=== PATIENT | female | born 1995 | race Caucasian/White ===

== ENCOUNTER 2016-11-09 04:39 | Emergency (ER) | payer BC, MEDICAID ==
[~2016-11-09] VITALS: Ht 160 cm; Wt 90.9 kg
[~2016-11-09 04:39] MED LIST: PREN1TAB31 PO
[2016-11-09 04:47] VITALS: Ht 160 cm; Wt 90.9 kg
[2016-11-09] MEDS ORDERED: KETOROLAC 60 MG INJ IM STA (07:17)
[2016-11-09 07:32] LABS: URINE BLOOD (Dip) POC 1+ (NEGATIVE)
[2016-11-09 08:02] LABS: ADD SCAN DIFF NO
[2016-11-09 08:14] LABS: ALBUMIN 4.2 g/dl (3.3-4.9)
[2016-11-09 08:15] LABS: POTASSIUM 4.2 mmol/L (3.5-5.1)
[2016-11-09 08:17] LABS: ALBUMIN/GLOBULIN RATIO 1.23; CREATININE 0.81 mg/dl (0.44-1.00); TOTAL PROTEIN 7.6 g/dl (6.1-8.1)
[2016-11-09 08:18] LABS: CALCIUM 9.3 mg/dl (8.4-10.2)
[2016-11-09 08:19] LABS: BASOPHILS % 0.3 % (0.0-2.0); EOSINOPHILS # 0.3 10^3/ul (0.0-0.5); EOSINOPHILS % 1.9 % (0.0-7.0); HEMATOCRIT 39.9 % (37.0-47.0); HEMOGLOBIN 12.9 g/dl (12.0-16.0); LYMPHOCYTES # 2.2 10^3/ul (0.8-2.9); LYMPHOCYTES % 15.6 % (15.0-51.0); MEAN CORPUSCULAR HEMOGLOBIN 29.1 pg (29.0-33.0); MEAN CORPUSCULAR HGB CONC 32.3 g/dl (32.0-37.0); MEAN CORPUSCULAR VOLUME 89.9 fl (82.0-101.0); MEAN PLATELET VOLUME 9.4 fl (7.4-10.4); MONOCYTE # 0.8 10^3/ul (0.3-0.9); MONOCYTES % 5.6 % (0.0-11.0); NEUTROPHIL # 10.6 10^3/ul (1.6-7.5); NEUTROPHILS % 76.2 % (39.0-77.0); PLATELET COUNT 306 10^3/UL (140-415); RED BLOOD COUNT 4.44 10^6/ul (4.20-5.40); RED CELL DISTRIBUTION WIDTH 12.9 % (11.5-14.5); WHITE BLOOD COUNT 13.9 10^3/ul (4.8-10.8)
[2016-11-09] MEDS ORDERED: KETOROLAC 30 MG INJ IV STA (08:26)
[2016-11-09 08:27] LABS: ADD UMIC YES; URINE BILIRUBIN (Dip) NEGATIVE (NEGATIVE); URINE BLOOD (Dip) 1+ (NEGATIVE); URINE COLOR LT. YELLOW (YELLOW); URINE GLUCOSE (Dip) NEGATIVE (NEGATIVE); URINE KETONES (Dip) TRACE (NEGATIVE); URINE LEUKOCYTE ESTERASE (Dip) NEGATIVE (NEGATIVE); URINE NITRITE (Dip) NEGATIVE (NEGATIVE); URINE TOTAL PROTEIN (Dip) TRACE (NEGATIVE); URINE UROBILINOGEN (Dip) 0.2 E.U./dL (0.1-1.0)
--- NOTE | 2016-11-09 08:30 | RADRPT ---
PROCEDURE: US Abdomen Right Upper Quadrant. CLINICAL INDICATION: Abdominal pain TECHNIQUE: Multiple real-time longitudinal and transverse images were acquired of the patient's merged with [facility] upper quadrant abdomen utilizing a curved array transducer. COMPARISON: 08/04/2014 FINDINGS: Liver: The liver is enlarged with the sagittal diameter right lobe measuring 20.5 cm. There is a di ffuse increase in echotexture seen to the liver with no focal lesion identified. There is antegrade flow of the main portal vein. Gallbladder: Cholelithiasis with the largest measuring 2.1 cm. The gallbladder wall is not thickened . Bile ducts: There is no significant intra or extrahepatic bile duct dilatation. No choledocholiths a re seen within the visualized portions. The common bile duct measures 2.6 mm in cross diameter. Pancreas: Appears unremarkable with no mass or inflammation evident. Right adrenal : No mass is evident. Right kidney: Normal in echotexture andl in size. The right kidney measures 10.2 in length. No mass, pathological calcification, or hydronephrosis is evident. Peritoneum: There is no free intraperitoneal fluid IMPRESSION: 1. Hepatomegaly with diffusely increased echotexture compatible with either diffuse fatty infiltrat ion or diffuse hepatocellular disease. 2. Cholelithiasis without gallbladder wall thickening or bile duct dilatation. The visualized panc reas appears unremarkable. 3. Normal-appearing right kidney without hydronephrosis. 4. No free fluid was identified. Physician Sana Date Time Electronically viewed and signed by Physician Sana on 11/09/2016 08:30 /
[2016-11-09 08:48] LABS: SQUAMOUS EPITHELIAL CELL,UR FEW
[2016-11-09] MEDS ORDERED: IBUP800T25 PO (08:56)
--- NOTE | 2016-11-09 09:00 | ERD ---
ER Documentation Chief Complaint Date/Time DATE: 11/09/16 TIME: 08:56 Chief Complaint C/P AP & BACK PAIN SINCE LAST NIGHT +NAUSEA HX GALLSTONES HPI 21-year-old female complaining of right upper quadrant abdominal pain and back pain 4 hours. The pain is sharp, feels like "someone is poking me". Onset is slow, the back pain is worse with movement. She took 2 Advils at home without relief of pain. Denies nausea, vomiting or diarrhea. Denies dysuria. Denies fever or chills. Denies radiation of pain. ROS All systems reviewed and are negative except as per history of present illness. Medications Home Meds Active Scripts Ibuprofen* (Motrin*) 800 Mg Tab, 800 MG PO Q8 Y for PAIN AND OR ELEVATED TEMP, # 30 TAB Prov:KYRA PERSON OFFSET PROOF PRESS OPERATOR 11/09/16 Reported Medications Vits #90-Iron Fum-FA ( Formula) 1 Each Tablet, 1 TAB PO DAILY, TAB 08/04/14 Allergies Allergies: Coded Allergies: No Known Drug Allergies (Verified Allergy, Mild, 08/04/14) PMhx/Soc Medical and Surgical Hx: pt denies Surgical Hx History of Surgery: No Anesthesia Reaction: No Hx Neurological Disorder: No Hx Respiratory Disorders: No Hx Cardiac Disorders: No Hx Psychiatric Problems: No Hx Miscellaneous Medical Probl: Yes (gallstones) Hx Alcohol Use: No Hx Substance Use: No Hx Tobacco Use: No Physical Exam Vitals Vital Signs Date Time Temp Pulse Resp B/P Pulse Ox O2 Delivery O2 Flow Rate FiO2 11/09/16 04:47 99.6 91 20 143/83 97 Physical Exam General impression: Well-developed, well-nourished. Alert, oriented, in no acute distress Head: Normocephalic, atraumatic. Respiration: Normal respiratory effort. Lungs clear to auscultate bilaterally. No wheezes, rales or rhonchi. Cardiovascular: Regular rate and rhythm. No murmurs or extra heart sounds. Abdomen: Abdomen normal to inspection. Right upper quadrant tenderness, no other tenderness. No rebound or guarding. No masses or organomegaly. Bowel sounds normal. Back: Normal to inspection. No midline spine tenderness. No CVA tenderness. Paraspinal muscle spasm noted on the right lumbar region. Neuro: Mental status normal, speech normal. WRITER grossly intact. Skin: Normal turgor. No rash or lesions. Psych: Normal mood and affect. Result Diagram: 11/09/16 0745 11/09/16 0745 Results 24 hrs Laboratory Tests Test 11/09/16 07:30 11/09/16 07:45 11/09/16 07:55 Bedside Urine Blood 1+ Bedside Urine Glucose (UA) Negative Bedside Urine Ketones (LAB) Trace Bedside Urine Leukocyte Esterase (L Negative Bedside Urine Nitrite (LAB) Negative Bedside Urine Protein (LAB) 1+ Bedside Urine pH (LAB) 6.0 Alanine Aminotransferase (ALT/SGPT) 22IU/L Albumin 4.2g/dl Albumin/Globulin Ratio 1.23 Alkaline Phosphatase 114IU/L Anion Gap 19 Aspartate Amino Transf (AST/SGOT) 17IU/L Basophils # 0.010^3/ul Basophils % 0.3% Blood Urea Nitrogen 15mg/dl Calcium Level 9.3mg/dl Carbon Dioxide Level 24mmol/L Chloride Level 105mmol/L Creatinine 0.81mg/dl Direct Bilirubin 0.00mg/dl Eosinophils # 0.310^3/ul Eosinophils % 1.9% Globulin 3.40g/dl Glucose Level 102mg/dl Hematocrit 39.9% Hemoglobin 12.9g/dl Indirect Bilirubin 0.0mg/dl Lipase 56U/L Lymphocytes # 2.210^3/ul Lymphocytes % 15.6% Mean Corpuscular Hemoglobin 29.1pg Mean Corpuscular Hemoglobin Concent 32.3g/dl Mean Corpuscular Volume 89.9fl Mean Platelet Volume 9.4fl Monocytes # 0.810^3/ul Monocytes % 5.6% Neutrophils # 10.610^3/ul Neutrophils % 76.2% Nucleated Red Blood Cells # 0.010^3/ul Nucleated Red Blood Cells % 0.0/100WBC Platelet Count 03994^3/UL Potassium Level 4.2mmol/L Red Blood Count 4.4410^6/ul Red Cell Distribution Width 12.9% Sodium Level 144mmol/L Total Bilirubin 0.0mg/dl Total Protein 7.6g/dl White Blood Count 13.910^3/ul Urine Bilirubin NEGATIVE Urine Clarity CLEAR Urine Color LT. YELLOW Urine Glucose NEGATIVE% Urine Hemoglobin 1+ Urine Ketones TRACE Urine Leukocyte Esterase NEGATIVE Urine Microscopic RBC 5-10/HPF Urine Microscopic WBC NONE SEEN/HPF Urine Nitrite NEGATIVE Urine Specific [place] 1.020 Urine Squamous Epithelial Cells FEW Urine Total Protein TRACE Urine Urobilinogen 0.2 E.U./dL Urine pH 6.0 Current Medications Medications (Trade) Dose Ordered Sig/Que Route PRN Reason Start Time Stop Time Status Last Admin Dose Admin Ketorolac Tromethamine (Toradol) 60 mg ONCE STAT IM 11/09/16 07:17 11/09/16 08:31 DC Ketorolac Tromethamine (Toradol) 30 mg ONCE STAT IV 11/09/16 08:26 11/09/16 08:52 DC 11/09/16 08:44 PROCEDURE: US Abdomen Right Upper Quadrant. CLINICAL INDICATION: Abdominal pain TECHNIQUE: Multiple real-time longitudinal and transverse images were acquired of the patient's right upper quadrant abdomen utilizing a curved array transducer. COMPARISON: 08/04/2014 FINDINGS: Liver: The liver is enlarged with the sagittal diameter right lobe measuring 20.5 cm. There is a diffuse increase in echotexture seen to the liver with no focal lesion identified. There is antegrade flow of the main portal vein. Gallbladder: Cholelithiasis with the largest measuring 2.1 cm. The gallbladder wall is not thickened. Bile ducts: There is no significant intra or extrahepatic bile duct dilatation. No choledocholiths are seen within the visualized portions. The common bile duct measures 2.6 mm in cross diameter. Pancreas: Appears unremarkable with no mass or inflammation evident. Right adrenal : No mass is evident. Right kidney: Normal in echotexture andl in size. The right kidney measures 10.2 in length. No mass, pathological calcification, or hydronephrosis is evident. Peritoneum: There is no free intraperitoneal fluid IMPRESSION: 1. Hepatomegaly with diffusely increased echotexture compatible with either diffuse fatty infiltration or diffuse hepatocellular disease. 2. Cholelithiasis without gallbladder wall thickening or bile duct dilatation. The visualized pancreas appears unremarkable. 3. Normal-appearing right kidney without hydronephrosis. 4. No free fluid was identified. Physician Sana Date Time Electronically viewed and signed by Physician Sana on 11/09/2016 08:30 RH/ CC: KYRA PERSON. OFFSET PROOF PRESS OPERATOR Procedures/MDM Well-appearing 21-year-old female presented to ED with right upper quadrant abdominal pain and back pain. Ultrasound of the gallbladder showed cholelithiasis without gallbladder wall thickening or bile duct dilation. Right kidney appears normal without hydronephrosis. Diffuse hepatic fatty infiltrate or hepatocellular disease is noted. No free fluids. Her WBC is slightly elevated at 13.9, without left shift. CMP unremarkable. UA showed 1+ hemoglobin, trace ketones, otherwise negative. No sign of urinary tract infection. Upon further questioning, patient admits to history of gallstones. Patient's pain is likely due to gallstone, without sign of cholecystitis or obstruction. She also has back spasm. Patient was given Toradol 30 mg IV in the ED for pain relief. Patient appears well, stable for discharge and outpatient management. Patient advised to follow-up with his PCP for general surgery referral. Medical decision making shared with patient and family. Education provided to patient and family. Patient and family expressed understanding of the plan. Medications on discharge: Ibuprofen. Follow-up: Primary care provider in 2-3 days or return to ED if worse. Departure Diagnosis: Primary Impression: Cholelithiasis Cholelithiasis location: gallbladder Cholecystitis presence: without cholecystitis Biliary obstruction: without biliary obstruction Qualified Code : K80.20 - Calculus of gallbladder without cholecystitis without obstruction Condition: Good Patient Instructions: Gallstones Referrals: [facility] YOU HAVE RECEIVED A MEDICAL SCREENING EXAM AND THE RESULTS INDICATE THAT YOU DO NOT HAVE A CONDITION THAT REQUIRES URGENT TREATMENT IN THE EMERGENCY DEPARTMENT. FURTHER EVALUATION AND TREATMENT OF YOUR CONDITION CAN WAIT UNTIL YOU ARE SEEN IN YOUR DOCTORS OFFICE WITHIN THE NEXT 1-2 DAYS. IT IS YOUR RESPONSIBILITY TO MAKE AN APPOINTMENT FOR [facility]. IF YOU HAVE A PRIMARY DOCTOR --you should call your primary doctor and schedule an appointment IF YOU DO NOT HAVE A PRIMARY DOCTOR YOU CAN CALL OUR PHYSICIAN REFERRAL HOTLINE AT IF YOU CAN NOT AFFORD TO SEE A PHYSICIAN YOU CAN CHOSE FROM THE FOLLOWING [facility] [address] [facility]. [facility] [address] [facility] [address] [facility]. [facility] [address] [facility]. [facility] [address] [facility]. [facility] [address] Additional Instructions: Call your primary care doctor TOMORROW for an appointment during the next 2-3 days.See the doctor sooner or return here if your condition worsens before your appointment time. KYRA PERSON NP Nov 09, 2016 08:59
[2016-11-09 10:01] VITALS: BP 130/75; PULSE 75; RESP 20; TEMP 98.5
== END 2016-11-09 09:45 | disposition home or self-care (01) ==
LOC: FTE 04:39
DX: K80.20 Calculus of gallbladder without cholecystitis without obstruction (principal)
CPT/HCPCS: 36415; 76705; 80053; 81001; 83690; 85025; 96374; J1885; Z7502; 81003